=== PATIENT | female | born 1980 | race Caucasian/White ===

== ENCOUNTER → 2021-12-12 | Outpatient (CLI) | payer BC ==
[~2021-12-12] MED LIST: ALBUTEROL0.83 MG/ML IH; ALBUTEROL2.5 MG/3 M IH; ASMANEX TW0.22 MG/AC IH; MONONESSA 35 MC1 TA1 PO; PHENERGAN W/CO120 M1 PO; PREDNISONE20 M1 PO; RT ALBUTEROL CC18 GM IH; ZITHROMAX 250M250 MG PO; ZYRTEC10 MG PO
== END ==
LOC: RAD 15:31
DX: M77.32 Calcaneal spur, left foot (principal)